=== PATIENT | male | born 1985 | race Caucasian/White ===

== ENCOUNTER 2016-11-26 18:03 | Emergency (ER) | payer SELFPAY ==
[~2016-11-26] VITALS: Ht 177.8 cm; Wt 91.0 kg
[2016-11-26] MEDS ORDERED: IBUPROFEN 600MG TABLET PO ONE (23:00)
[2016-11-26] MEDS ORDERED: LIDOCAINE HCL 1% 20ML VIAL (Pyxis) INJ INFIL ONE (23:00)
[2016-11-26] MEDS ORDERED: BACITRACIN ZINC OINT UDPKT TOP ONE (23:00)
[2016-11-26 23:18] VITALS: BP 138/79
== END 2016-11-27 00:11 | disposition home or self-care (01) ==
LOC: ER 18:03
DX: S61.213A Laceration without foreign body of left middle finger without damage to nail, initial encounter (principal); S61.215A Laceration without foreign body of left ring finger without damage to nail, initial encounter; W45.8XXA Other foreign body or object entering through skin, initial encounter; Y93.89 Activity, other specified; Y92.89 Other specified places as the place of occurrence of the external cause; Y99.8 Other external cause status
CPT/HCPCS: 12002; 99284; A4217; J3490; Z7610; 12001

== ENCOUNTER 2016-12-08 09:20 | Emergency (ER) | payer SELFPAY ==
[~2016-12-08] VITALS: Ht 177.8 cm; Wt 91.0 kg
[2016-12-08 10:30] VITALS: BP 135/78
== END 2016-12-08 11:32 | disposition home or self-care (01) ==
LOC: ER 11:01
DX: S61.213D Laceration without foreign body of left middle finger without damage to nail, subsequent encounter (principal); S61.215D Laceration without foreign body of left ring finger without damage to nail, subsequent encounter; X58.XXXD Exposure to other specified factors, subsequent encounter
CPT/HCPCS: 99281; Z7610